=== PATIENT | male | born 1935 | race Caucasian/White ===

== ENCOUNTER 2019-08-19 09:07 | Emergency (ER) | payer MEDICARE, OTHER ==
[2019-08-19] MEDS ORDERED: Propofol 200 MG/20 ML SDV IV ONE (09:08)
[2019-08-19] MEDS ORDERED: Sodium Chloride 0.9% 10 ML Syringe FLUSH PRN (09:11)
[2019-08-19] MEDS ORDERED: Sodium Chloride 0.9% 500 ML IV ONE (09:13)
[2019-08-19] MEDS ORDERED: Sodium Chloride 0.9% 250 ML IV SCH (10:00)
--- NOTE | 2019-08-19 10:04 | EDM.PDOC ---
ED HPI GENERAL MEDICAL PROBLEM - General Chief Complaint: Neuro Symptoms/Deficits Stated Complaint: UNRESPONSIVE Time Seen by Provider: 08/19/19 09:10 Source of Information: Reports: EMS, Family History Limitations: Reports: Altered Mental Status - History of Present Illness INITIAL COMMENTS - FREE TEXT/NARRATIVE: Patient was found unresponsive by his laying in bed @0700, he was last seen normal at 2200 last night. Per , there was no trauma. Patient is on Xarelto for Atrial Fibrillation. He had no complaints last night before retiring to bed. EMS noted the patient to be unresponsive with stable vital signs and a blood sugar of 159. - Related Data Allergies Allergy/AdvReac Type Severity Reaction Status Date / Time No Known Allergies Allergy Verified 08/19/19 10:03 Past Medical History HEENT History: Reports: Sinusitis Cardiovascular History: Reports: Afib ED ROS GENERAL - Review of Systems Review Of Systems: Unable To Obtain Reason Not Obtained: ALOC ED EXAM, NEURO - Physical Exam Exam: See Below Exam Limited By: No Limitations General Appearance: Obtunded Eye Exam: Bilateral Eye: Other (pupils 3-4 mm equal and sluggishly reactive) Head Exam: Atraumatic, Normocephalic Neck: Normal Inspection Respiratory/Chest: No Respiratory Distress, Rhonchi Cardiovascular: Regular Rate, Rhythm, No Murmur GI/Abdominal: No Distention Neurological: Other (Unresponsive, GCS=3) Extremities: Normal Inspection Skin Exam: Intact EKG INTERPRETATION EKG Date: 08/19/19 Time: 09:47 Rhythm: Other (ventricular-paced rhythm) Rate (Beats/Min): 61 Course - Vital Signs Last Recorded V/S: Triage vitals: BP 160/77, HR 78, RR 25, Sa02 90% RA, T 94.1 - Orders/Labs/Meds Orders: Active Orders 24 hr Category Date Time Status EKG Documentation Completion [RC] ASDIRECTED Care 08/19/19 09:11 Active Insert Urinary Catheter [OM.PC] Q24H Care 08/19/19 09:15 Ordered Urinary Catheter Assessment [RC] QSHIFT Care 08/19/19 09:12 Active Chest 1V Frontal [CR] Stat Exams 08/19/19 09:12 Ordered Head wo Cont [CT] Stat Exams 08/19/19 09:12 Taken CULTURE BLOOD [BC] Urgent Lab 08/19/19 09:10 Received CULTURE BLOOD [BC] Urgent Lab 08/19/19 09:10 Received FRESH FROZEN PLASMA [BBK] Stat Lab 08/19/19 09:49 Ordered TYPE AND SCREEN [BBK] Stat Lab 08/19/19 09:49 Ordered UA W/MICROSCOPIC [URIN] Stat Lab 08/19/19 09:10 Received Sodium Chloride 0.9% [Normal Saline] 250 ml Med 08/19/19 10:00 Ordered IV ASDIRECTED Sodium Chloride 0.9% [Normal Saline] 500 ml Med 08/19/19 09:13 Active IV .BOLUS Sodium Chloride 0.9% [Saline Flush] Med 08/19/19 09:11 Active 10 ml FLUSH ASDIRECTED PRN Blood Culture x2 Reflex Set [OM.PC] Urgent Oth 08/19/19 09:11 Ordered Saline Lock Insert [OM.PC] Routine Oth 08/19/19 09:11 Ordered Transfuse Fresh Frozen Plasma [COMM] Stat Oth 08/19/19 09:49 Ordered Transfuse Fresh Frozen Plasma [COMM] Stat Oth 08/19/19 09:49 Ordered EKG 12 Lead [EK] Stat Ther 08/19/19 09:10 Ordered Medication Orders Sodium Chloride (Normal Saline) 500 mls @ 500 mls/hr IV .BOLUS ONE Stop: 08/19/19 10:12 Sodium Chloride (Normal Saline) 250 mls @ 100 mls/hr IV ASDIRECTED RACHAEL Sodium Chloride (Saline Flush) 10 ml FLUSH ASDIRECTED PRN PRN Reason: Keep Vein Open Labs: Laboratory Tests 08/19/19 08/19/19 08/19/19 Range/Units 09:10 09:10 09:10 WBC 13.3 H (4.5-12.0) X10-3/uL RBC 4.22 L (4.30-5.75) x10(6)uL Hgb 13.7 (13.5-17.8) g/dL Hct 39.4 (30.0-51.3) % MCV 93.3 (80-96) fL MCH 32.3 (27.7-33.6) pg MCHC 34.7 (32.2-35.4) g/dL RDW 13.5 (11.5-15.5) % Plt Count 336 (125-369) X10(3)uL MPV 7.0 L (7.4-10.4) fL Neut % (Auto) 83.7 H (46-82) % Lymph % (Auto) 7.8 L (13-37) % [place] % (Auto) 7.5 (4-12) % Eos % (Auto) 1 (1.0-5.0) % Baso % (Auto) 0 (0-2) % Neut # (Auto) 11.1 H (1.6-8.3) # Lymph # (Auto) 1.0 (0.6-5.0) # Schoolcraft # (Auto) 1.0 (0.0-1.3) # Eos # (Auto) 0.1 (0.0-0.8) # Baso # (Auto) 0.1 (0.0-0.2) # PT 11.6 H (8.7-11.1) INR 1.20 H (0.89-1.13) APTT 28.7 (24.4-33.2) SECONDS Sodium 143 (135-145) mmol/L Potassium 3.3 L (3.5-5.3) mmol/L Chloride 104 (100-110) mmol/L Carbon Dioxide 28 (21-32) mmol/L BUN 17 (7-18) mg/dL Creatinine 1.2 (0.70-1.30) mg/dL Est Cr Clr Drug Dosing TNP Estimated GFR (MDRD) 58 L (>60) BUN/Creatinine Ratio 14.2 (9-20) Glucose 190 H (80-116) mg/dL Lactic Acid (0.4-2.0) mmol/L Calcium 9.4 (8.6-10.2) mg/dL Total Bilirubin 0.3 (0.1-1.3) mg/dL AST 23 (5-25) IU/L ALT 15 (12-36) U/L Alkaline Phosphatase 108 (56-112) IU/L Troponin I (<0.017-0.056) ng/mL Total Protein 8.1 H (6.0-8.0) g/dL Albumin 3.9 (3.2-4.6) g/dL Globulin 4.2 g/dL Albumin/Globulin Ratio 0.9 08/19/19 08/19/19 Range/Units 09:10 09:10 WBC (4.5-12.0) X10-3/uL RBC (4.30-5.75) x10(6)uL Hgb (13.5-17.8) g/dL Hct (30.0-51.3) % MCV (80-96) fL MCH (27.7-33.6) pg MCHC (32.2-35.4) g/dL RDW (11.5-15.5) % Plt Count (125-369) X10(3)uL MPV (7.4-10.4) fL Neut % (Auto) (46-82) % Lymph % (Auto) (13-37) % [place] % (Auto) (4-12) % Eos % (Auto) (1.0-5.0) % Baso % (Auto) (0-2) % Neut # (Auto) (1.6-8.3) # Lymph # (Auto) (0.6-5.0) # [place]craft # (Auto) (0.0-1.3) # Eos # (Auto) (0.0-0.8) # Baso # (Auto) (0.0-0.2) # PT (8.7-11.1) INR (0.89-1.13) APTT (24.4-33.2) SECONDS Sodium (135-145) mmol/L Potassium (3.5-5.3) mmol/L Chloride (100-110) mmol/L Carbon Dioxide (21-32) mmol/L BUN (7-18) mg/dL Creatinine (0.70-1.30) mg/dL Est Cr Clr Drug Dosing Estimated GFR (MDRD) (>60) BUN/Creatinine Ratio (9-20) Glucose (80-116) mg/dL Lactic Acid 3.4 H* (0.4-2.0) mmol/L Calcium (8.6-10.2) mg/dL Total Bilirubin (0.1-1.3) mg/dL AST (5-25) IU/L ALT (12-36) U/L Alkaline Phosphatase (56-112) IU/L Troponin I < 0.017 L (<0.017-0.056) ng/mL Total Protein (6.0-8.0) g/dL Albumin (3.2-4.6) g/dL Globulin g/dL Albumin/Globulin Ratio Meds: Medications Generic Name Dose Route Start Last Admin Trade Name Freq PRN Reason Stop Dose Admin Sodium Chloride 500 mls @ 500 mls/hr 08/19/19 09:13 Normal Saline IV 08/19/19 10:12 .BOLUS ONE Sodium Chloride 250 mls @ 100 mls/hr 08/19/19 10:00 Normal Saline IV ASDIRECTED RACHAEL Sodium Chloride 10 ml 08/19/19 09:11 Saline Flush FLUSH ASDIRECTED PRN Keep Vein Open - Radiology Interpretation Free Text/Narrative:: CT Head w/o contrast: Very large 9.5 cm acute parenchymal hemorrhage centered within the right striatocapsular region demonstrating intraventricular extension. mass effect includes 2.5 cm leftward midline shift, subfalcine herniation, and effacement of the suprasellar cistern. Enlargement of the supratentorial ventricular system secondary to hydrocephalus. Asymmetric moderately severe enlargement of the left lateral ventricle in part relates to trapping. (CRL, Dr. Fink) - Re-Assessments/Exams Free Text/Narrative Re-Assessment/Exam: 08/19/19 09:13 confirms patient is a full code 08/19/19 09:33 Patient intubated using glideoscope with ETT size 8.0 by GLOVE FORMER. 08/19/19 10:16 Family notified of large intracranial hemorrhage and of a probable grave outcome. Case discussed with Dr. Morales ([facility]), surgery not recommended. Family agrees to continue ventilatory support, but elects not to resuscitate further should he progress to cardiac arrest. [facility] on divert for admissions. Family wishes to proceed with transfer to [facility] as a DNR. Dr. Head accepts transfer to [facility]. Departure - Departure Time of Disposition: 10:21 Disposition: DC/Tfer to Acute Hospital 02 Condition: Critical Clinical Impression: Intracranial hemorrhage, Altered level of consciousness - Discharge Information Forms: ED Department Discharge - My Orders Last 24 Hours: My Active Orders 08/19/19 09:10 CULTURE BLOOD [BC] Urgent CULTURE BLOOD [BC] Urgent UA W/MICROSCOPIC [URIN] Stat EKG 12 Lead [EK] Stat 08/19/19 09:11 EKG Documentation Completion [RC] ASDIRECTED Sodium Chloride 0.9% [Saline Flush] 10 ml FLUSH ASDIRECTED PRN Blood Culture x2 Reflex Set [OM.PC] Urgent Saline Lock Insert [OM.PC] Routine 08/19/19 09:12 Urinary Catheter Assessment [RC] QSHIFT Chest 1V Frontal [CR] Stat Head wo Cont [CT] Stat 08/19/19 09:13 Sodium Chloride 0.9% [Normal Saline] 500 ml IV .BOLUS 08/19/19 09:15 Insert Urinary Catheter [OM.PC] Q24H 08/19/19 09:49 FRESH FROZEN PLASMA [BBK] Stat TYPE AND SCREEN [BBK] Stat Transfuse Fresh Frozen Plasma [COMM] Stat Transfuse Fresh Frozen Plasma [COMM] Stat 08/19/19 10:00 Sodium Chloride 0.9% [Normal Saline] 250 ml IV ASDIRECTED - Assessment/Plan Last 24 Hours: My Active Orders 08/19/19 09:10 CULTURE BLOOD [BC] Urgent CULTURE BLOOD [BC] Urgent UA W/MICROSCOPIC [URIN] Stat EKG 12 Lead [EK] Stat 08/19/19 09:11 EKG Documentation Completion [RC] ASDIRECTED Sodium Chloride 0.9% [Saline Flush] 10 ml FLUSH ASDIRECTED PRN Blood Culture x2 Reflex Set [OM.PC] Urgent Saline Lock Insert [OM.PC] Routine 08/19/19 09:12 Urinary Catheter Assessment [RC] QSHIFT Chest 1V Frontal [CR] Stat Head wo Cont [CT] Stat 08/19/19 09:13 Sodium Chloride 0.9% [Normal Saline] 500 ml IV .BOLUS 08/19/19 09:15 Insert Urinary Catheter [OM.PC] Q24H 08/19/19 09:49 FRESH FROZEN PLASMA [BBK] Stat TYPE AND SCREEN [BBK] Stat Transfuse Fresh Frozen Plasma [COMM] Stat Transfuse Fresh Frozen Plasma [COMM] Stat 08/19/19 10:00 Sodium Chloride 0.9% [Normal Saline] 250 ml IV ASDIRECTED
== END 2019-08-19 11:04 ==
LOC: FB.ED 09:07
DX: I62.9 Nontraumatic intracranial hemorrhage, unspecified (principal); I48.91 Unspecified atrial fibrillation; Z79.01 Long term (current) use of anticoagulants; Z79.899 Other long term (current) drug therapy
CPT/HCPCS: 31500; 36415; 36430; 36600; 70450; 71045; 80053; 81001; 82803; 83605; 84484; 85025; 85610; 85730; 86850; 86900; 86901; 93005; 96360; 99285; 99285-25; J2704; J7040; P9017